=== PATIENT | female | born 1935 | race Caucasian/White ===

== ENCOUNTER 2018-06-03 06:32 | Day surgery (SDC) | payer OTHER ==
[2018-06-03] MEDS: BETADINE OPTH PREP OP PRN ×2 (08:40→09:19)
[2018-06-03] MEDS: TETRACAINE 0.5% UNIT-DOSE OP PRN ×2 (08:40→09:19)
[2018-06-03] MEDS: CYCLOGYL 2% OPTH OP PRN ×3 (08:41→08:51)
[2018-06-03] MEDS ORDERED: ZOFRAN 4 MG/2 ML IVP ONE (08:48)
[2018-06-03] MEDS ORDERED: BSS WITH EPINEPHRINE OP ONE (08:48)
[2018-06-03] MEDS ORDERED: BRIMONIDINE TARTRATE 0.2% OPTH SOL OP PRN (08:48)
[2018-06-03] MEDS ORDERED: LIDOCAINE 1%/PHENYLEPHRINE 1.5% BSS (SURGERY) INTRAOCULA ONE (08:48)
[2018-06-03] MEDS ORDERED: DEX-MOXI-KETOR OPTH INJ 1/0.5/0.4 MG/ML IO ONE (08:48)
[2018-06-03] MEDS ORDERED: LIDOCAINE 1% 20 ML MDV ID STA (08:48)
[2018-06-03] MEDS ORDERED: SUBLIMAZE ONE (09:34)
[2018-06-03] MEDS ORDERED: VERSED ONE (09:34)
[2018-06-03 11:28] VITALS: TEMP 97.8
[2018-06-03 16:35] VITALS: BP 112/67
== END 2018-06-03 10:25 | disposition home or self-care (01) ==
LOC: SURG 06:32
PROVIDERS: ATTEND Ophthalmology
DX: H25.811 Combined forms of age-related cataract, right eye (principal)